=== PATIENT | male | born 1955 | race Asian ===

== ENCOUNTER 2023-04-23 11:49 | Inpatient (IN) | payer OTHER ==
[~2023-04-23] VITALS: Ht 177.8 cm; Wt 75.0 kg
[2023-04-23] MEDS ORDERED: ONDANSETRON HCL 4 MG/2 ML VIAL IVP ONE (13:45)
[2023-04-23] MEDS ORDERED: SODIUM CHLORIDE 0.9% 1,000 ML IV ONE (13:45)
[2023-04-23] MEDS ORDERED: MORPHINE SULFATE 2 MG/ML SYRINGE IVP ONE (13:45)
[2023-04-23 14:12] LABS: BASOPHILS % (AUTO) 0.5 % (0.0-2.0); EOSINOPHILS % (AUTO) 0.3 % (1.0-6.0); HEMATOCRIT 44.2 % (41-53); HEMOGLOBIN 14.7 g/dL (13.5-17.5); LYMPHOCYTES # (AUTO) 1.9 K/uL (1.0-4.8); MEAN CORPUSCULAR HEMOGLOBIN 31.6 pg (26.0-34.0); MEAN CORPUSCULAR HGB CONC 33.3 G/dL (31.0-37.0); MEAN CORPUSCULAR VOLUME 95 fL (80-100); MONOCYTES # (AUTO) 0.5 K/uL (0.1-1.0); MONOCYTES % (AUTO) 6.9 % (2.0-9.0); NEUTROPHILS # (AUTO) 5.5 K/uL (1.8-7.7); NEUTROPHILS % (AUTO) 68.3 % (40.0-70.0); PLATELET COUNT (AUTO) 175 K/uL (150-450); RED BLOOD CELL COUNT(AUTO) 4.67 MIL/uL (4.50-5.90); RED CELL DISTRIBUTION WIDTH 13.8 % (11.5-14.5)
[2023-04-23 14:22] LABS: ANION GAP 8 mmol/L (8-16); CALCIUM, TOTAL 8.4 mg/dL (8.8-10.5); CARBON DIOXIDE 27 mmol/L (22-29); CHLORIDE 103 mmol/L (98-107); CREATININE 1.02 mg/dL (0.60-1.30); GLOMERULAR FILTR. RATE CALC > 60 mL/min (>60); GLUCOSE,RANDOM 111 mg/dL (70-110); POTASSIUM 3.4 mmol/L (3.5-5.1); SODIUM SERUM 138 mmol/L (136-145)
[2023-04-23 14:27] LABS: ALANINE AMINOTRANSFERASE 23 U/L (12-78); ALBUMIN 3.6 g/dL (3.4-5.0); ALKALINE PHOSPHATASE 51 U/L (46-116); ASPARTATE AMINOTRANSFERASE 21 U/L (15-37); BILIRUBIN,TOTAL 0.6 mg/dL (0.1-1.0); LIPASE 93 U/L (73-393); TOTAL PROTEIN, SERUM 7.4 g/dL (6.4-8.2)
[2023-04-23] MEDS ORDERED: ACETAMINOPHEN 325 MG TABLET PO PRN ×2 (15:45→16:00)
[2023-04-23] MEDS ORDERED: ONDANSETRON HCL 4 MG/2 ML VIAL IVP PRN ×2 (15:45→16:00)
[2023-04-23] MEDS ORDERED: ZOLPIDEM TARTRATE 5 MG TABLET PO PRN (16:00)
[2023-04-23] MEDS ORDERED: MORPHINE SULFATE 2 MG/ML SYRINGE IVP PRN (16:00)
[2023-04-23] MEDS ORDERED: HYDROCODONE/ACETAMINOPHEN 5-325 MG TABLET PO PRN (16:00)
[2023-04-23] MEDS ORDERED: BISACODYL 10 MG RECTAL RECTAL SUPPOSITORY PR PRN (16:00)
[2023-04-23] MEDS ORDERED: POTASSIUM CHLORIDE 20 MEQ ER TABLET PO PRN (16:00)
[2023-04-23] MEDS ORDERED: MAGNESIUM HYDROXIDE SUSPENSION 30 ML UDCUP PO PRN (16:00)
[2023-04-23] MEDS ORDERED: POTASSIUM CHL 10 MEQ/WATER 50 ML IV PRN (16:00)
[2023-04-23 17:05] VITALS: BP 109/65; PULSE 53; RESP 20; TEMP 98.1
[2023-04-23] MEDS: HEPARIN SODIUM,PORCINE 5,000 UNITS/ML VIAL SQ SCH (17:19)
[2023-04-23 19:35] VITALS: BP 102/60; PULSE 59; RESP 16; TEMP 98.1
[2023-04-23] MEDS: DOCUSATE SODIUM 100 MG CAPSULE PO SCH (20:46)
[2023-04-24] MEDS: HEPARIN SODIUM,PORCINE 5,000 UNITS/ML VIAL SQ SCH ×4 (00:07→23:43)
[2023-04-24 04:05] VITALS: BP 101/57; PULSE 50; RESP 16; TEMP 97.7
[2023-04-24 08:08] VITALS: BP 93/56; PULSE 54; RESP 18; TEMP 98.2
[2023-04-24 08:10] VITALS: BP 93/67; RESP 18
[2023-04-24] MEDS: DOCUSATE SODIUM 100 MG CAPSULE PO SCH ×3 (08:22→19:36)
[2023-04-24] MEDS ORDERED: PANTOPRAZOLE SODIUM 40 MG DR TABLET PO SCH (09:00)
[2023-04-24 15:48] VITALS: BP 100/64; PULSE 56; RESP 18; TEMP 98.1
[2023-04-24 20:03] VITALS: BP 95/59; PULSE 52; RESP 20; TEMP 99.3
[2023-04-25 04:25] VITALS: BP 102/65; PULSE 45; RESP 20; TEMP 97.7
== END 2023-04-25 06:48 | DRG 392 ==
LOC: EMS 11:55 → 6S 15:38
PROVIDERS: ADMIT Internal Medicine; ATTEND Internal Medicine
DX: K21.9 Gastro-esophageal reflux disease without esophagitis (principal); E87.6 Hypokalemia
CPT/HCPCS: 71045; 74176; 80053; 83690; 84132; 84484; 85025; 93005; 99285; J1644; J2270; J2405; J7030; 36415-L1; 36415-TC